=== PATIENT | male | born 1970 | race Caucasian/White ===

== ENCOUNTER 2017-01-03 18:34 | Inpatient (IN) | payer BC ==
[2017-01-03] MEDS ORDERED: NITROGLYCERIN SL TABS 0.4 MG TAB SUBLINGUAL PRN ×2 (18:53→20:30)
[2017-01-03] MEDS ORDERED: ASPIRIN 81 MG PO STA (18:53)
[2017-01-03 18:59] LABS: Basophils # (A) 0.1 k/uL (0-0.2); Basophils % (A) 0 %; CH 31.5; CHCM 33.2; Eosinophils # (A) 0.3 k/uL (0-0.7); Eosinophils % (A) 1 %; HCT 49.1 % (39.0-53.0); HDW 2.21; HGB 15.5 gm/dL (13.0-17.5); Luc % (Auto) 0; Lymphocytes # (A) 2.3 k/uL (1.0-4.8); Lymphocytes % (A) 10 %; MCH 30.1 pg (25.0-35.0); MCHC 31.6 g/dL (31.0-37.0); MCV 95.3 fL (80.0-100.0); Mean Platelet Volume 7.8; Monocytes % (A) 4 %; Neutrophils # (A) 19.1 k/uL (1.3-7.7); Neutrophils % (A) 84 %; RBC 5.16 m/uL (4.30-5.90); RDW 13.9 % (11.5-15.5); WBC 22.8 k/uL (3.8-10.6); WBC (Perox) 23.29
[2017-01-03] MEDS ORDERED: ATORVASTATIN 80 MG TAB PO STA (18:59)
[2017-01-03] MEDS ORDERED: HEPARIN SODIUM,PORCINE 5,000 UNIT/ML 1 ML VIAL IV ONE (19:04)
[2017-01-03 19:07] LABS: ALT 73 U/L (21-72); AST 45 U/L (17-59); Alkaline Phosphatase 85 U/L (38-126); Anion Gap 18 mmol/L; Blood Urea Nitrogen 19 mg/dL (9-20); Calcium 10.3 mg/dL (8.4-10.2); Carbon Dioxide 19 mmol/L (22-30); Chloride 99 mmol/L (98-107); Glucose 294 mg/dL (74-99); Non-African American GFR(MDRD) >60 (>60 ml/min/1.73 sqM); Potassium 4.2 mmol/L (3.5-5.1); Sodium 136 mmol/L (137-145); Total Bilirubin 0.7 mg/dL (0.2-1.3); Total Protein 8.2 g/dL (6.3-8.2)
--- NOTE | 2017-01-03 19:09 | ED ---
Chest Pain HPI - General Chief Complaint: Chest Pain Stated Complaint: Chest Pain Time Seen by Provider: 01/03/17 18:47 Source: patient Mode of arrival: ambulatory Limitations: no limitations - History of Present Illness Initial Comments: This patient is a 46-year-old man, with history of hypertension, who states that he was in his usual state of health until around 5:30 when he developed substernal chest discomfort that he describes as being heavy, constant, and without worsening or relieving factors. It is moderate intensity. He states that it also was accompanied by feeling nauseated, lightheaded, and a little short of breath. The patient's mother persuaded him to come emergency department. He denies history of previous coronary disease. He denies history of bleeding or clotting disorder. MD Complaint: chest pain Onset/Timin -: hour(s) Onset: during rest Pain Location: substernal Pain Radiation: none Severity: moderate Quality: heaviness Consistency: constant Improves With: nothing Worsens With: nothing Anginal Symptoms: nausea, dyspnea, other (Lightheaded) Other Symptoms: cough Treatments Prior to Arrival: none - Related Data Home Medications Medication Instructions Recorded Confirmed Cholecalciferol [Vitamin D3] 1,000 unit PO DAILY 01/03/17 01/03/17 Levothyroxine Sodium [Synthroid] 25 mcg PO DAILY 01/03/17 01/03/17 Lisinopril 40 mg PO DAILY 01/03/17 01/03/17 Oxymetazoline 0.05% Nasl [place] 2 spray EA NOSTRIL DAILY PRN 01/03/17 01/03/17 [Afrin 0.05% Nasal [place]] Triamterene/Hydrochlorothiazid 1 tab PO HS 01/03/17 01/03/17 [Triamterene-Hctz 37.5-25 mg Tb] metFORMIN HCL [Glucophage] 1,000 mg PO BID 01/03/17 01/03/17 Allergies Allergy/AdvReac Type Severity Reaction Status Date / Time No Known Allergies Allergy Verified 01/03/17 21:42 Review of Systems ROS Statement: Those systems with pertinent positive or pertinent negative responses have been documented in the HPI. ROS Other: All systems not noted in ROS Statement are negative. Constitutional: Denies: fever, chills Respiratory: Reports: dyspnea. Denies: cough, wheezes Cardiovascular: Reports: chest pain. Denies: palpitations, orthopnea, syncope Gastrointestinal: Reports: nausea. Denies: abdominal pain, vomiting, melena, hematochezia Genitourinary: Denies: dysuria Musculoskeletal: Denies: back pain Skin: Denies: rash Neurological: Denies: headache, weakness, numbness Hematological/Lymphatic: Denies: easy bleeding EKG Findings - EKG Results: EKG: interpreted by ERMD, sinus rhythm (With 1 fusion complex, rate approximate 78 bpm), normal axis - [place], Pacemaker, Normal: Myocardial infarction: septal [place] (acute or recent) (There are ST elevations leads V2 through V5) Past Medical History Past Medical History: Diabetes Mellitus, Hypertension History of Any Multi-Drug Resistant Organisms: None Reported Past Surgical History: Cholecystectomy, Orthopedic Surgery Past Psychological History: No Psychological Hx Reported Smoking Status: Current some day smoker Past Alcohol Use History: Rare Past Drug Use History: None Reported General Exam Limitations: no limitations General appearance: alert, in no apparent distress Head exam: Present: atraumatic, normocephalic Eye exam: Present: normal appearance. Absent: scleral icterus, conjunctival injection ENT exam: Present: normal oropharynx Neck exam: Present: normal inspection Respiratory exam: Present: normal lung sounds bilaterally. Absent: respiratory distress, wheezes, rales, rhonchi, stridor, chest wall tenderness Cardiovascular Exam: Present: regular rate, normal rhythm, normal heart sounds. Absent: systolic murmur, diastolic murmur, rubs, gallop GI/Abdominal exam: Present: soft. Absent: distended, tenderness, guarding, rebound, mass Extremities exam: Present: normal inspection, normal capillary refill. Absent: pedal edema, calf tenderness Back exam: Present: normal inspection. Absent: CVA tenderness (R), CVA tenderness (L) Neurological exam: Present: alert Skin exam: Present: warm, dry, intact, normal color. Absent: rash Course Vital Signs 01/03/17 01/03/17 01/03/17 18:39 18:45 18:50 Temperature 97.6 F Pulse Rate 81 100 100 Respiratory 18 18 18 Rate Blood Pressure 143/91 148/90 148/90 O2 Sat by Pulse 100 100 100 Oximetry 01/03/17 01/03/17 01/03/17 18:55 19:00 19:05 Temperature Pulse Rate 100 88 76 Respiratory 18 18 18 Rate Blood Pressure 137/83 121/87 124/73 O2 Sat by Pulse 99 99 100 Oximetry 01/03/17 01/03/17 19:10 19:15 Temperature Pulse Rate 66 73 Respiratory 18 18 Rate Blood Pressure 122/68 121/71 O2 Sat by Pulse 100 99 Oximetry - Reevaluation(s) Reevaluation #1: 01/03/17 19:10 Case discussed with hospitalist group for admission. Chest Pain MDM - MDM This patient is a 46-year-old man with history of hypertension who presents with symptoms concerning for acute coronary syndrome, and the ECG does show ST elevations in anteroseptal leads. labor conciliator was activated and I discussed the case with Dr. Tyson, who requested that Dr. Chapman be paged, and I discussed the case with him as well. The patient will go to the Traffic Work[facility] Representative. Critical Care Time Critical Care Time: Yes (35 minutes) Disposition Clinical Impression: ST elevation myocardial infarction (STEMI) Disposition: ADMITTED IP TO THIS HOSP Condition: Critical
[2017-01-03] MEDS ORDERED: HEPARIN SODIUM,PORCINE/D5W PMX 25,000 UNIT in DEXTROSE/WATER 1 500ML.BAG IV SCH (19:15)
[2017-01-03] MEDS ORDERED: LIDOCAINE 2% INJ 20 MG/ML (20 ML MDV) ONE ×2 (19:21→20:16)
[2017-01-03] MEDS ORDERED: IV FLUID CONTINUATION 900 ML IV ONE (19:23)
[2017-01-03] MEDS ORDERED: LIDOCAINE 2% INJ 20 MG/ML SQ ONE (19:35)
[2017-01-03] MEDS ORDERED: MIDAZOLAM 2 MG/2 ML VIAL IV ONE (19:35)
[2017-01-03] MEDS ORDERED: diphenhydrAMINE 50 MG/ML 1 ML VIAL ONE (19:36)
[2017-01-03] MEDS ORDERED: MIDAZOLAM 2 MG/2 ML VIAL ONE (19:36)
[2017-01-03] MEDS ORDERED: diphenhydrAMINE 50 MG/ML 1 ML VIAL IVP ONE (19:37)
[2017-01-03 19:45] LABS: Troponin I 0.028 ng/mL (0.000-0.034)
[2017-01-03] MEDS ORDERED: BIVALIRUDIN 250 MG in SODIUM CHLORIDE 0.9% 50 ML IV ONE (19:46)
[2017-01-03] MEDS ORDERED: BIVALIRUDIN BOLUS 250 MG/50 ML IV ONE (19:46)
[2017-01-03 19:56] LABS: Creatine Kinase MB 4.4 ng/mL (0.0-2.4)
[2017-01-03] MEDS ORDERED: LIDOCAINE HCL/PF 20 MG/ML 10 ML AMP IV ONE (19:57)
[2017-01-03 19:59] LABS: Partial Thromboplastin Time 22.5 sec (22.0-30.0); Prothrombin Time 10.6 sec (9.0-12.0)
[2017-01-03] MEDS ORDERED: HYDROmorphone 2 MG/ML 1 ML SYRINGE ONE (20:00)
[2017-01-03] MEDS: HYDROmorphone 2 MG/ML 1 ML SYRINGE IV ONE ×2 (20:01→20:17)
[2017-01-03] MEDS ORDERED: NITROGLYCERIN 1000MCG/10ML SYRINGE INTRAARTER ONE (20:08)
[2017-01-03] MEDS ORDERED: HYDROmorphone 2 MG/ML 1 ML SYRINGE IV ONE (20:08)
[2017-01-03] MEDS ORDERED: PRASUGREL 10 MG TAB ONE (20:12)
[2017-01-03] MEDS ORDERED: PRASUGREL 10 MG TAB PO ONE (20:13)
[2017-01-03] MEDS ORDERED: IOHEXOL 350 MG/ML 125ML BOTTLE INJ ONE (20:20)
--- NOTE | 2017-01-03 20:20 | XR ---
EXAMINATION TYPE: XR chest 1V portable DATE OF EXAM: 01/03/2017 COMPARISON: NONE INDICATION: Chest pain TECHNIQUE: Single frontal view of the chest is obtained. FINDINGS: The heart size is normal. The pulmonary vasculature is normal. The lungs are clear. IMPRESSION: 1. No acute pulmonary process.
--- NOTE | 2017-01-03 20:29 | CONS ---
CONSULTATION CHIEF COMPLAINT: Chest pain. HISTORY OF PRESENT ILLNESS: This is a 46-year-old gentleman with history of hypertension and [id number]-[id number] diabetes who presented to hospital with sudden onset chest pain. He describes it as a precordial chest pressure that started around 5 o'clock, severe intensity, came on at rest associated with diaphoresis and the pain has radiated to his back. The initial EKG showed acute ST-segment elevation from V1 to V6 suggestive of acute anterior wall myocardial infarction. I evaluated the patient in the emergency room and advised him to undergo emergent cardiac catheterization. He had been explained the risks, benefits and alternatives, understood and accepted. PAST MEDICAL HISTORY: Significant for diabetes and hypertension. MEDICATIONS: Include lisinopril and metformin. ALLERGIES: Denies any. FAMILY HISTORY: Significant for premature coronary artery disease in his father. SOCIAL HISTORY: Negative for smoking, ETOH abuse or drug abuse. REVIEW OF SYSTEMS: HEENT is unremarkable. Cardiac as described above. Respiratory negative. GI negative. negative. Skin and muscle: Unremarkable. Endocrine: Unremarkable. Constitutional and oncological negative. Rest of the system review is not relevant. EXAM: Comfortable at rest. Vital signs are stable. There is no jugular venous distention. Carotid upstroke is normal. There is no bruit. Chest exam reveals good air entry bilaterally. Heart exam reveals first and second heart sounds. No gallop. No murmur. No rub. ABDOMEN: Soft, nontender. Exam of the extremities did not reveal edema. Peripheral pulses are felt. PROCESSING SPEC exam did not reveal focal neurological deficits. EKG shows acute ST-segment elevation in the precordial leads. Labs are pending. ASSESSMENT: Acute anterior wall myocardial infarction. PLAN: The patient will undergo emergent cardiac catheterization with a view to performing angioplasty. Evidently based therapies have been initiated in the ER. MMODL / IJN: [id number] /
[2017-01-03] MEDS ORDERED: ATROPINE SULFATE 0.1 MG/ML 10ML SYRINGE IV PRN (20:30)
[2017-01-03] MEDS ORDERED: RX INFO: IV CONTRAST WAS GIVEN 1 EACH MISC MISCELLANE PRN (20:30)
[2017-01-03] MEDS ORDERED: ZOLPIDEM 5 MG TAB PO PRN (20:30)
[2017-01-03] MEDS ORDERED: MAG HYDROX/AL HYDROX/SIMETH 30 ML CUP PO PRN (20:30)
--- NOTE | 2017-01-03 20:44 | CC ---
CARDIAC CATHETERIZATION REPORT INDICATION: Acute anterior wall myocardial infarction. PROCEDURE NOTE: After obtaining informed consent, left heart catheterization and coronary angiogram were performed via the right femoral artery using standard Andre catheters. The patient tolerated the procedure well without any obvious immediate complications. FINDINGS: HEMODYNAMICS: 1. Central aortic pressure is 110/70 mm. LEFT VENTRICULOGRAM.: Left ventriculogram was not performed. ANGIOGRAPHIC DATA: 1. Left main coronary artery: Left main coronary artery is a normal-sized vessel and is free of stenosis. Divides into left anterior descending coronary artery and circumflex coronary artery. 2. LAD is totally occluded in its proximal part. 3. Circumflex coronary artery shows mild nonobstructive CAD. 4. Right coronary artery is a large dominant vessel shows mild non atherosclerotic plaque. CONCLUSIONS: Acute occlusion of the proximal LAD. PLAN: There is a vessel that is responsible for the acute myocardial infarction. The patient will undergo emergent angioplasty by Dr. Pedro Chapman, the on-call associate store manager. MMISREALL / ESSIEN: [id number] /
[2017-01-03] MEDS ORDERED: MAGNESIUM SULFATE-D5W PMX 1 GM in DEXTROSE/WATER 1 100ML.BAG IVPB ONE (21:00)
[2017-01-03 21:03] LABS: Glucose,Whole Blood 234 mg/dL (75-99)
[2017-01-03] MEDS: METOPROLOL TARTRATE 12.5 MG TAB PO SCH (21:44)
--- NOTE | 2017-01-03 22:20 | CC ---
PCI OF LAD REPORT. DATE OF SERVICE: 01/03/2017 PROCEDURE: PTCA and stenting of totally occluded proximal LAD performed in the setting of an acute ST-elevation [place]. Reperfusion achieved in 82 min. PERFORMED BY: Dr. Pedro Chapman. SEDATION: Moderate conscious sedation time 44 minutes. CLINICAL INFORMATION: Mr. Dmitriy Gipson presented with acute anterior lateral myocardial infarction to the emergency room, was seen by Dr. Tyson who underwent prompt cardiac catheterization that revealed total occlusion of proximal LAD. He had noncritical disease in other vessels. He underwent PCI in the same setting. PROCEDURE NOTE: The existing 6-[place] introducer in the right femoral artery was used to perform procedure. I used a standard left Andre guide catheter to cannulate the left coronary artery. I used a run-through wire, but the wire kept going into the diagonal branch. I then advanced a whisper wire with a J-tip and using a little manipulation of the guide, I was able to advance the wire into the total occlusion of the LAD. Wire was kept distally. Predilatation was performed using a 3.0 caliber 12 mm long Trek balloon. Subsequently, a 12 mm long 3.25 caliber Xience stent was deployed at 12 atmospheres. Patient had chest pain and anterior ST elevation. Excellent angiographic result was achieved. He developed some ventricular ectopy requiring lidocaine. Excellent angiographic result without complication was achieved. A Perclose device was used to secure hemostasis and patient was sent to the room in stable condition. He received 60 mg of Effient. He also received Angiomax bolus and infusion as per protocol. The drug-eluting stent was deployed with excellent angiographic result without complication. Results were discussed with the patient and his mother. He was sent to the ICU in a stable condition. MMODL / IJN: [id number] / MTDD
[2017-01-03] MEDS: INSULIN ASPART 100 UNIT/ML 1 ML 10 ML VIAL SQ SCH (22:36)
[2017-01-03] MEDS: SODIUM CHLORIDE 0.9% 1,000 ML IV SCH (22:39)
[2017-01-04 06:13] LABS: Basophils % (A) 0 %; CHCM 34.2; Eosinophils # (A) 0.2 k/uL (0-0.7); Eosinophils % (A) 1 %; HCT 43.5 % (39.0-53.0); HDW 2.25; HGB 14.4 gm/dL (13.0-17.5); Luc # (Auto) 0.13; Luc % (Auto) 1; Lymphocytes # (A) 2.8 k/uL (1.0-4.8); Lymphocytes % (A) 23 %; MCH 31.1 pg (25.0-35.0); MCHC 33.2 g/dL (31.0-37.0); MCV 93.9 fL (80.0-100.0); Mean Platelet Volume 6.6; Monocytes # (A) 0.7 k/uL (0-1.0); Monocytes % (A) 6 %; Neutrophils # (A) 8.4 k/uL (1.3-7.7); Neutrophils % (A) 69 %; RBC 4.63 m/uL (4.30-5.90); RDW 12.4 % (11.5-15.5); WBC 12.1 k/uL (3.8-10.6)
[2017-01-04 06:46] LABS: Anion Gap 8 mmol/L; Blood Urea Nitrogen 17 mg/dL (9-20); Calcium 9.4 mg/dL (8.4-10.2); Carbon Dioxide 22 mmol/L (22-30); Chloride 102 mmol/L (98-107); Glucose 191 mg/dL (74-99); Non-African American GFR(MDRD) >60 (>60 ml/min/1.73 sqM); Potassium 3.9 mmol/L (3.5-5.1); Sodium 132 mmol/L (137-145)
[2017-01-04] MEDS ORDERED: Potassium Replacement Protocol 1 EACH MISC MISCELLANE PRN (07:15)
[2017-01-04] MEDS ORDERED: INSULIN ASPART 100 UNIT/ML 1 ML 10 ML VIAL SQ SCH (07:30)
[2017-01-04 07:33] LABS: Glucose,Whole Blood 185 mg/dL (75-99)
[2017-01-04] MEDS ORDERED: POTASSIUM CHLORIDE ER 20 MEQ TAB.ER PO SCH (08:00)
[2017-01-04] MEDS: INSULIN ASPART 100 UNIT/ML 1 ML 10 ML VIAL SQ SCH ×4 (08:30→20:20)
[2017-01-04] MEDS: ASPIRIN 81 MG PO SCH (08:31)
[2017-01-04] MEDS: LISINOPRIL 10 MG TAB PO SCH (08:31)
[2017-01-04] MEDS: METOPROLOL TARTRATE 12.5 MG TAB PO SCH ×2 (08:32→20:19)
[2017-01-04 09:43] VITALS: BMI 34.2
--- NOTE | 2017-01-04 11:01 | ECHOF ---
Referral Reason:evaluate LV function, anterior STEMI MEASUREMENTS -------- HEIGHT: 182.9 cm WEIGHT: 121.1 kg BP: IVSd: 1.6 cm (0.6 - 1.1) LVIDd: 4.0 cm (3.9 - 5.3) LVPWd: 1.6 cm (0.6 - 1.1) IVSs: 2.0 cm LVIDs: 2.7 cm LVPWs: 2.2 cm Ao Diam: 3.4 cm (2.0 - 3.7) AV Cusp: 2.2 cm (1.5 - 2.6) LA Diam: 3.4 cm (2.7 - 3.8) MV EXCURSION: 21.171 mm (> 18.000) MV EF SLOPE: 166 mm/s (70 - 150) EPSS: 0.3 cm MV E Dwayne: 0.90 m/s MV DecT: 219 ms MV A Dwayne: 0.66 m/s MV E/A Ratio: 1.35 RAP: 5.00 mmHg RVSP: 20.43 mmHg FINDINGS -------- Sinus rhythm. This was a technically difficult study with suboptimal views. The left ventricular size is normal. There is moderate concentric left ventricular hypertrophy. O verall left ventricular systolic function is moderately impaired with, an EF between 35 - 40 %. Sep ester Hypokinesis [place] Hypokinesis. The right ventricle is normal in size and function. The left atrium is normal in size. The right atrium is normal in size. 1.5mg of Definity was utilized for enhancement of images The aortic valve is trileaflet, and appears structurally normal. No aortic stenosis or regurgitation. There is trace mitral regurgitation. Trace tricuspid regurgitation present. The right ventricular systolic pressure, as measured by Dopp ler, is 20.43mmHg. Pulmonic valve appears structurally normal. The aortic root size is normal. The pericardium is normal. CONCLUSIONS -------- 1. Sinus rhythm. 2. This was a technically difficult study with suboptimal views. 3. The left ventricular size is normal. 4. There is moderate concentric left ventricular hypertrophy. 5. Overall left ventricular systolic function is moderately impaired with, an EF between 35 - 40 %. 6. Septal Hypokinesis 7. [place] Hypokinesis. 8. The right ventricle is normal in size and function. 9. The left atrium is normal in size. 10. The right atrium is normal in size. 11. 1.5mg of Definity was utilized for enhancement of images 12. The aortic valve is trileaflet, and appears structurally normal. No aortic stenosis or regurgitat ion. 13. There is trace mitral regurgitation. 14. Trace tricuspid regurgitation present. 15. The right ventricular systolic pressure, as measured by Doppler, is 20.43mmHg. 16. Pulmonic valve appears structurally normal. 17. The aortic root size is normal. 18. The pericardium is normal. MAINS[employer]ING TORQUE TESTER: Veronica Santos RDCS
[2017-01-04 12:08] LABS: Glucose,Whole Blood 213 mg/dL (75-99)
--- NOTE | 2017-01-04 12:27 | PN ---
PROGRESS NOTE Mr. Gipson presented with acute anterior PA yesterday and underwent stenting of totally occluded LAD and a reperfusion was accomplished in 82 minutes. He is doing well this morning. Denies chest pain, stable shortness of breath. The right groin is clean and dry. Blood pressure 130/80, pulse rate is 70 per minute. S1, S2 are heard normal. Lungs are clear. Abdomen and lower extremity exam unchanged. Right groin is clean and dry. Plan is to get echocardiogram, increase activity and hopefully move him into telemetry tomorrow. MMODL / IJN: [id number] /
[2017-01-04] MEDS: SODIUM CHLORIDE 0.9% 1,000 ML IV SCH (12:35)
[2017-01-04] MEDS: CLOPIDOGREL 75 MG TAB PO SCH (12:35)
[2017-01-04 17:23] LABS: Glucose,Whole Blood 143 mg/dL (75-99)
[2017-01-04] MEDS: ATORVASTATIN 80 MG TAB PO SCH (20:19)
[2017-01-04 20:20] LABS: Glucose,Whole Blood 201 mg/dL (75-99)
--- NOTE | 2017-01-04 22:32 | P.HPIM ---
History of Present Illness H&P Date: 01/04/17 Chief Complaint: Chest pain Patient is a 46 old male with a known history of hypertension, diabetes type 2 and hypothyroidism came to the hospital with complaints of chest pain radiating down the left arm. Patient did some yard work Today and a shunt did not eat from 10 AM to 5 PM yesterday. Patient felt dizzy and had shower. Patient became sweaty at the time. Patient went and ate something and came home when he felt chest pressure and heavy feeling in the chest constant. It is associated with shortness of breath and not feeling well. Denied any aggravating or relieving factors. Patient came to the hospital for evaluation. Patient was found to have ST elevated [place] and was immediately taken to cardiac catheterization and stent placement was done. Patient denied any history of previous coronary artery disease. Otherwise patient does have family history of coronary artery disease in his father and grandfather. Patient does smoke cigarettes. History of diabetes and hypertension. Currently patient denied any chest discomfort or shortness of breath at this time Review of Systems Constitutional: Patient denies any fever or chills . No generalized weakness or weight loss. Abdomen: Patient denied nausea vomiting and diarrhea and abdominal pain. Cardiovascular: Patient denies any chest pain or short of breath no palpitations. Respiratory: patient denied any cough is from production. No shortness of breath Neurologic: Patient denied any numbness or tingling headache. Musculoskeletal: Patient denies any complaints of joint swelling or deformity. Skin: Negative Psychiatric: Negative Endocrine: No heat or cold intolerance. No recent weight gain. Genitourinary: No dysuria or hematuria. All other 14 point ROS negative except the above Past Medical History Past Medical History: Diabetes Mellitus, Hypertension History of Any Multi-Drug Resistant Organisms: None Reported Past Surgical History: Cholecystectomy, Orthopedic Surgery Past Anesthesia/Blood Transfusion Reactions: No Reported Reaction Past Psychological History: No Psychological Hx Reported Smoking Status: Current some day smoker Past Alcohol Use History: Rare Past Drug Use History: None Reported Medications and Allergies Home Medications Medication Instructions Recorded Confirmed Type Cholecalciferol [Vitamin D3] 1,000 unit PO DAILY 01/03/17 01/03/17 History Levothyroxine Sodium [Synthroid] 25 mcg PO DAILY 01/03/17 01/03/17 History Lisinopril 40 mg PO DAILY 01/03/17 01/03/17 History Oxymetazoline 0.05% Nasl [place] 2 spray EA NOSTRIL DAILY PRN 01/03/17 01/03/17 History [Afrin 0.05% Nasal [place]] Triamterene/Hydrochlorothiazid 1 tab PO HS 01/03/17 01/03/17 History [Triamterene-Hctz 37.5-25 mg Tb] metFORMIN HCL [Glucophage] 1,000 mg PO BID 01/03/17 01/03/17 History Allergies Allergy/AdvReac Type Severity Reaction Status Date / Time No Known Allergies Allergy Verified 01/03/17 21:42 Physical Exam Vitals: Vital Signs Temp Pulse Pulse Resp BP BP Pulse Ox 01/04/17 07:00 62 19 127/77 97 01/04/17 06:30 65 20 127/77 96 01/04/17 06:00 69 21 114/69 95 01/04/17 05:30 70 21 114/69 96 01/04/17 05:00 64 20 118/71 98 01/04/17 04:30 77 28 H 118/71 98 01/04/17 04:00 99 F 63 13 113/69 99 01/04/17 03:30 65 17 113/69 97 01/04/17 03:00 78 21 102/61 97 01/04/17 02:30 68 17 102/61 96 01/04/17 02:00 63 18 111/61 98 01/04/17 01:30 65 17 111/61 98 01/04/17 01:00 71 19 117/62 97 01/04/17 00:30 72 24 117/62 96 01/04/17 00:00 98.8 F 75 21 132/72 97 01/03/17 23:48 22 01/03/17 23:30 74 24 132/72 96 01/03/17 23:23 75 20 132/72 96 01/03/17 23:00 76 22 135/72 96 01/03/17 22:30 98.8 F 84 25 H 135/72 98 01/03/17 22:00 70 17 123/78 98 01/03/17 21:30 99.5 F 96 22 123/78 98 01/03/17 21:03 99.5 F 76 18 97 01/03/17 21:01 80 12 96 01/03/17 19:33 99.5 F 63 19 123/78 98 01/03/17 19:15 73 18 121/71 99 01/03/17 19:10 66 18 122/68 100 01/03/17 19:05 76 18 124/73 100 01/03/17 19:00 88 18 121/87 99 01/03/17 18:55 100 18 137/83 99 01/03/17 18:50 100 18 148/90 100 01/03/17 18:45 100 18 148/90 100 01/03/17 18:39 97.6 F 81 18 143/91 100 Intake and Output 01/03/17 01/04/17 01/04/17 22:59 06:59 14:59 Intake Total 370.35 600 75 Output Total 0 1200 0 Balance 370.35 -600 75 Intake: IV 370.35 600 75 Sodium Chloride 0.9% 1, 75 600 75 000 ml @ 75 mls/hr IV . [id number] Rx#:[id number] Output: Urine 0 1200 0 Other: Weight 122.4 kg 121.2 kg 121.2 kg Patient Weight 01/05/17 06:59 Weight 121.2 kg PHYSICAL EXAMINATION: Patient is lying in the bed comfortably, no acute distress, awake alert and oriented.. HEENT: Normocephalic. Neck is supple. Pupils reactive. Nostrils clear. Oral cavity is moist. Ears reveal no drainage. Neck reveals no JVD, carotid bruits, or thyromegaly. CHEST EXAMINATION: Trachea is central. Symmetrical expansion. Lung leroy clear to auscultation and percussion. CARDIAC: Normal S1, S2 with no gallops. No murmurs ABDOMEN: Soft. Bowel sounds normal. No organomegaly. No abdominal bruits. Extremities: reveal no edema. No clubbing or cyanosis Neurologically awake, alert, oriented x3 with well-coordinated movements. No focal deficits noted Skin: No rash or skin lesions. Psychiatric: Operative. Nonsuicidal Musculoskeletal: No joint swelling or deformity. Normal range of motion. Results CBC & Chem 7: 01/04/17 06:02 01/04/17 06:02 Labs: Abnormal Lab Results - Last 24 Hours (Table) 01/03/17 01/03/17 01/03/17 Range/Units 18:50 18:50 18:50 WBC 22.8 H (3.8-10.6) k/uL Neutrophils # 19.1 H (1.3-7.7) k/uL Sodium 136 L (137-145) mmol/L Carbon Dioxide 19 L (22-30) mmol/L Glucose 294 H (74-99) mg/dL POC Glucose (mg/dL) (75-99) mg/dL Calcium 10.3 H (8.4-10.2) mg/dL ALT 73 H (21-72) U/L CK-MB (CK-2) 4.4 H* (0.0-2.4) ng/mL Troponin I (0.000-0.034) ng/mL 01/03/17 01/04/17 01/04/17 Range/Units 21:01 01:42 06:02 WBC (3.8-10.6) k/uL Neutrophils # (1.3-7.7) k/uL Sodium 132 L (137-145) mmol/L Carbon Dioxide (22-30) mmol/L Glucose 191 H (74-99) mg/dL POC Glucose (mg/dL) 234 H (75-99) mg/dL Calcium (8.4-10.2) mg/dL ALT (21-72) U/L CK-MB (CK-2) (0.0-2.4) ng/mL Troponin I 155.000 H* (0.000-0.034) ng/mL 01/04/17 01/04/17 01/04/17 Range/Units 06:02 06:02 07:30 WBC 12.1 H (3.8-10.6) k/uL Neutrophils # 8.4 H (1.3-7.7) k/uL Sodium (137-145) mmol/L Carbon Dioxide (22-30) mmol/L Glucose (74-99) mg/dL POC Glucose (mg/dL) 185 H (75-99) mg/dL Calcium (8.4-10.2) mg/dL ALT (21-72) U/L CK-MB (CK-2) (0.0-2.4) ng/mL Troponin I 137.000 H* (0.000-0.034) ng/mL 01/04/17 Range/Units 12:06 WBC (3.8-10.6) k/uL Neutrophils # (1.3-7.7) k/uL Sodium (137-145) mmol/L Carbon Dioxide (22-30) mmol/L Glucose (74-99) mg/dL POC Glucose (mg/dL) 213 H (75-99) mg/dL Calcium (8.4-10.2) mg/dL ALT (21-72) U/L CK-MB (CK-2) (0.0-2.4) ng/mL Troponin I (0.000-0.034) ng/mL Thrombosis Risk Factor Assmnt - Choose All That Apply Any of the Below Risk Factors Present?: Yes Each Factor Represents 1 point: Acute [place], Age 41-60 years, Obesity (BMI >25) Other Risk Factors: No Other congenital or acquired thrombophilia - If yes, enter type in comment: No Thrombosis Risk Factor Assessment Total Risk Factor Score: 3 Thrombosis Risk Factor Assessment Level: Moderate Risk Assessment and Plan Assessment: #[address] elevated [place] status post emergent Catheterization and stent placement #2 hypertension #3 diabetes type 2 [id number] #4 hypothyroidism next #5 cigarettes smoking #6 family history of coronary disease Plan: Patient will be continued on telemetry monitoring. Continue with aspirin Plavix lisinopril and metoprolol. Continue to monitor closely and further recommendations based on clinical course. Continue with insulin sliding scale and home medications. Cardiology is following.
[2017-01-05 04:58] LABS: Basophils % (A) 0 %; CH 30.9; CHCM 32.8; Eosinophils # (A) 0.1 k/uL (0-0.7); Eosinophils % (A) 1 %; HCT 44.5 % (39.0-53.0); HGB 14.3 gm/dL (13.0-17.5); Luc # (Auto) 0.15; Luc % (Auto) 1; Lymphocytes # (A) 3.2 k/uL (1.0-4.8); Lymphocytes % (A) 31 %; MCH 30.5 pg (25.0-35.0); MCHC 32.2 g/dL (31.0-37.0); MCV 94.6 fL (80.0-100.0); Mean Platelet Volume 7.5; Monocytes # (A) 0.8 k/uL (0-1.0); Monocytes % (A) 8 %; Neutrophils % (A) 59 %; RDW 13.6 % (11.5-15.5); WBC 10.2 k/uL (3.8-10.6)
[2017-01-05 05:15] LABS: Anion Gap 6 mmol/L; Blood Urea Nitrogen 12 mg/dL (9-20); Calcium 9.4 mg/dL (8.4-10.2); Carbon Dioxide 26 mmol/L (22-30); Chloride 105 mmol/L (98-107); Glucose 174 mg/dL (74-99); Non-African American GFR(MDRD) >60 (>60 ml/min/1.73 sqM); Potassium 4.5 mmol/L (3.5-5.1); Sodium 137 mmol/L (137-145)
[2017-01-05 07:09] LABS: Glucose,Whole Blood 180 mg/dL (75-99)
[2017-01-05] MEDS: CLOPIDOGREL 75 MG TAB PO SCH (08:43)
[2017-01-05] MEDS: INSULIN ASPART 100 UNIT/ML 1 ML 10 ML VIAL SQ SCH ×4 (08:43→21:27)
[2017-01-05] MEDS: ASPIRIN 81 MG PO SCH (08:43)
[2017-01-05] MEDS: METOPROLOL TARTRATE 12.5 MG TAB PO SCH ×2 (08:44→21:26)
[2017-01-05 11:55] LABS: Glucose,Whole Blood 147 mg/dL (75-99)
[2017-01-05] MEDS: metFORMIN 500 MG TAB PO SCH ×2 (12:16→17:18)
[2017-01-05] MEDS: LISINOPRIL 10 MG TAB PO SCH (12:16)
--- NOTE | 2017-01-05 13:37 | PN ---
PROGRESS NOTE This gentleman who suffered from an anterior MS is doing well. His right groin is clean and dry. Vital signs are stable. Ejection fraction about 35% to 40%, but I suspect some of it is stunning and his LV function will improve eventually. His vital signs are stable. S1, S2 heard normally. Lungs are clear. Abdomen and lower extremity exam unchanged. Plan is to continue current medication. Increase activity and move him to telemetry today. Same medical regimen. MMODL / IJN: [id number] /
--- NOTE | 2017-01-05 17:03 | P.PN ---
Subjective Patient was admitted for rest elevation microinfarction underwent cardiac catheterization and stenting of left anterior descending. Patient's EF on echo cardiac exam is 35-40% Constitutional: Denied any fatigue denied any fever. Cardio vascular: denied any chest pain, palpitations Gastrointestinal denied any nausea vomiting Pulmonary: Denied any shortness of breath cough Neurologic denied any new focal deficits Objective - Vital Signs Vital signs: Vital Signs Temp 98.3 F 01/05/17 16:21 Pulse 59 L 01/05/17 14:00 Resp 12 01/05/17 14:00 BP 103/66 01/05/17 16:21 Pulse Ox 98 01/05/17 08:31 Intake & Output 01/04/17 01/05/17 01/05/17 18:59 06:59 18:59 Intake Total 375 1175 0 Output Total 0 Balance 375 1175 0 Weight 121.2 kg 120.6 kg 120.6 kg Intake: IV 375 375 Sodium Chloride 0.9% 1, 375 375 000 ml @ 75 mls/hr IV . [id number] POOL Rx#:[id number] Intake, IV Titration 0 0 Amount Sodium Chloride 0.9% 1, 0 0 000 ml @ 75 mls/hr IV . [id number] POOL Rx#:[id number] Oral 800 Output: Urine 0 Other: Voiding Method Toilet # Voids 1 0 2 - Exam PHYSICAL EXAMINATION: GENERAL: The patient is alert and oriented x3, not in any acute distress. Well developed, well nourished. HEENT: Pupils are round and equally reacting to light. EOMI. No scleral icterus. No conjunctival pallor. Normocephalic, atraumatic. No pharyngeal erythema. No thyromegaly. CARDIOVASCULAR: S1 and S2 present. No murmurs, rubs, or gallops. PULMONARY: Chest is clear to auscultation, no wheezing or crackles. ABDOMEN: Soft, nontender, nondistended, normoactive bowel sounds. No palpable organomegaly. MUSCULOSKELETAL: No joint swelling or deformity. EXTREMITIES: No cyanosis, clubbing, or pedal edema. NEUROLOGICAL: Gross neurological examination did not reveal any focal deficits. SKIN: No rashes. - Labs CBC & Chem 7: 01/05/17 04:24 01/05/17 04:24 Labs: Abnormal Lab Results - Last 24 Hours (Table) 01/04/17 01/04/17 01/05/17 Range/Units 17:21 20:19 04:24 Glucose 174 H (74-99) mg/dL POC Glucose (mg/dL) 143 H 201 H (75-99) mg/dL 01/05/17 01/05/17 Range/Units 07:08 11:54 Glucose (74-99) mg/dL POC Glucose (mg/dL) 180 H 147 H (75-99) mg/dL Assessment and Plan Plan: #[address] elevated [place] status post emergent Catheterization and stent placement #2 hypertension #3 diabetes type 2 [id number] #4 hypothyroidism #5 cigarettes smoking #6 congestive heart failure probable probably acute systolic dysfunction not in acute exacerbation patient was started on lisinopril and heart failure is probably related to 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
[2017-01-05 17:17] LABS: Glucose,Whole Blood 137 mg/dL (75-99)
[2017-01-05] MEDS ORDERED: SODIUM CHLORIDE 0.65% NASAL SPRAY 44 ML BTL NASAL PRN (17:29)
[2017-01-05 21:17] LABS: Glucose,Whole Blood 149 mg/dL (75-99)
[2017-01-05] MEDS: ATORVASTATIN 80 MG TAB PO SCH (21:26)
[2017-01-06 06:12] LABS: Glucose,Whole Blood 159 mg/dL (75-99)
[2017-01-06 06:22] LABS: Anion Gap 7 mmol/L; Blood Urea Nitrogen 14 mg/dL (9-20); Calcium 9.4 mg/dL (8.4-10.2); Carbon Dioxide 25 mmol/L (22-30); Chloride 104 mmol/L (98-107); Glucose 172 mg/dL (74-99); Non-African American GFR(MDRD) >60 (>60 ml/min/1.73 sqM); Potassium 4.2 mmol/L (3.5-5.1); Sodium 136 mmol/L (137-145)
[2017-01-06] MEDS: metFORMIN 500 MG TAB PO SCH (06:38)
[2017-01-06] MEDS: INSULIN ASPART 100 UNIT/ML 1 ML 10 ML VIAL SQ SCH ×2 (06:38→13:02)
[2017-01-06] MEDS: METOPROLOL TARTRATE 12.5 MG TAB PO SCH (08:39)
[2017-01-06] MEDS: LISINOPRIL 10 MG TAB PO SCH (08:39)
[2017-01-06] MEDS: CLOPIDOGREL 75 MG TAB PO SCH (08:39)
[2017-01-06] MEDS: ASPIRIN 81 MG PO SCH (08:39)
[2017-01-06 11:44] VITALS: BP 115/75; PULSE 67; RESP 14; TEMP 97
[2017-01-06 11:53] LABS: Glucose,Whole Blood 156 mg/dL (75-99)
--- NOTE | 2017-01-06 14:02 | P.DS ---
Providers Date of admission: 01/03/17 18:59 Attending physician: Kishan Perez Consults: 01/03/17 18:53 Consult Physician Stat Consulting Provider: [facility] Consult Reason/Comments: STEMI ACTIVATION COMPLETE Do you want consulting provider notified?: Already Contacted 01/03/17 20:33 Consult Physician Routine Consulting Provider: Td Gonsalez Consult Reason/Comments: Post Interventional patient Do you want consulting provider notified?: Already Contacted Primary care physician: Physician Nonstaff Hospital Course: Patient was admitted for ST elevation myocardial infarction underwent cardiac catheterization and stenting of left anterior descending. Patient's EF on echo cardiac exam is 35-40%. Patient is not in CHF exacerbation patient is clinically doing well is being discharged today . Patient will be continued on lisinopril PHYSICAL EXAMINATION: GENERAL: The patient is alert and oriented x3, not in any acute distress. Well developed, well nourished. HEENT: Pupils are round and equally reacting to light. EOMI. No scleral icterus. No conjunctival pallor. Normocephalic, atraumatic. No pharyngeal erythema. No thyromegaly. CARDIOVASCULAR: S1 and S2 present. No murmurs, rubs, or gallops. PULMONARY: Chest is clear to auscultation, no wheezing or crackles. ABDOMEN: Soft, nontender, nondistended, normoactive bowel sounds. No palpable organomegaly. MUSCULOSKELETAL: No joint swelling or deformity. EXTREMITIES: No cyanosis, clubbing, or pedal edema. NEUROLOGICAL: Gross neurological examination did not reveal any focal deficits. SKIN: No rashes. 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 Patient Condition at Discharge: Critical Plan - Discharge Summary Discharge Rx Participant: Yes New Discharge Prescriptions: New Aspirin 81 mg PO DAILY #30 chew Atorvastatin [Lipitor] 80 mg PO HS #30 tab Clopidogrel [Plavix] 75 mg PO DAILY #30 tab Lisinopril [Zestril] 10 mg PO DAILY #30 tab Metoprolol Tartrate [Lopressor] 12.5 mg PO BID #60 tab Nitroglycerin Sl Tabs [Nitrostat] 0.4 mg SUBLINGUAL Q5M PRN #25 tab PRN Reason: Chest Pain Discontinued Triamterene/Hydrochlorothiazid [Triamterene-Hctz 37.5-25 mg Tb] 1 tab PO HS Lisinopril 40 mg PO DAILY No Action Oxymetazoline 0.05% Nasl [place] [Afrin 0.05% Nasal [place]] 2 spray EA NOSTRIL DAILY PRN PRN Reason: Nasal Congestion Cholecalciferol [Vitamin D3] 1,000 unit PO DAILY metFORMIN HCL [Glucophage] 1,000 mg PO BID Levothyroxine Sodium [Synthroid] 25 mcg PO DAILY Discharge Medication List Cholecalciferol [Vitamin D3] 1,000 unit PO DAILY 01/03/17 [History] Levothyroxine Sodium [Synthroid] 25 mcg PO DAILY 01/03/17 [History] Oxymetazoline 0.05% Nasl [place] [Afrin 0.05% Nasal [place]] 2 spray EA NOSTRIL DAILY PRN 01/03/17 [History] metFORMIN HCL [Glucophage] 1,000 mg PO BID 01/03/17 [History] Aspirin 81 mg PO DAILY #30 chew 01/06/17 [Rx] Atorvastatin [Lipitor] 80 mg PO HS #30 tab 01/06/17 [Rx] Clopidogrel [Plavix] 75 mg PO DAILY #30 tab 01/06/17 [Rx] Lisinopril [Zestril] 10 mg PO DAILY #30 tab 01/06/17 [Rx] Metoprolol Tartrate [Lopressor] 12.5 mg PO BID #60 tab 01/06/17 [Rx] Nitroglycerin Sl Tabs [Nitrostat] 0.4 mg SUBLINGUAL Q5M PRN #25 tab 01/06/17 [Rx ] Follow up Appointment(s)/Referral(s): Landry Chapman MD [STAFF PHYSICIAN] - 01/13/17 8:00 am PriteshPhysician [Primary Care Provider] - 01/11/17 2:00 pm (Shana Oneill MD ) Patient Instructions/Handouts: *Surgery [facility] - After Heart Catheterization - [employer]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
--- NOTE | 2017-01-06 15:33 | CONS ---
CONSULTATION Mr. Gipson presented with acute anterior ID, underwent stenting of LAD. He was seen by Dr. Tyson on his arrival to the emergency room. He is doing well today, asymptomatic. No chest pain. Ejection fraction in the 40% range. Vital signs are stable. No JVD. S1-S2 heard normally. Heart sounds are distant. The lungs are clear. Abdomen and lower exam unchanged. Right groin is clean and dry. Dr. Tyson is not in town next week and therefore I will see him in the office and then turn him over to his care. This was explained to the patient and he will follow through. Again, I reviewed with him all the medications, specifically dual antiplatelet therapy and also reviewed with him the activity and that he should not drive for 1 week. I will see him in the office next week. MMODL / IJN: [id number] /
== END 2017-01-06 13:50 | disposition home or self-care (01) | DRG 247 ==
LOC: EC 18:34 → 6ICU 18:59 → 6SEL 01-05 17:44
PROVIDERS: ADMIT Hospitalist; ATTEND Hospitalist
PROC: B2111ZZ Fluoroscopy of Multiple Coronary Arteries using Low Osmolar Contrast (ICD-10-PCS; 2017-01-03)
PROC: B2151ZZ Fluoroscopy of Left Heart using Low Osmolar Contrast (ICD-10-PCS; 2017-01-03)
PROC: 4A023N7 Measurement of Cardiac Sampling and Pressure, Left Heart, Percutaneous Approach (ICD-10-PCS; principal; 2017-01-03 19:31)
PROC: 027034Z Dilation of Coronary Artery, One Artery with Drug-eluting Intraluminal Device, Percutaneous Approach (ICD-10-PCS; 2017-01-03 19:31)
DX: I21.09 ST elevation (STEMI) myocardial infarction involving other coronary artery of anterior wall (principal); I11.0 Hypertensive heart disease with heart failure; I50.22 Chronic systolic (congestive) heart failure; F17.210 Nicotine dependence, cigarettes, uncomplicated; I25.10 Atherosclerotic heart disease of native coronary artery without angina pectoris; E11.9 Type 2 diabetes mellitus without complications; I49.3 Ventricular premature depolarization; E03.9 Hypothyroidism, unspecified; Z82.49 Family history of ischemic heart disease and other diseases of the circulatory system; Z79.899 Other long term (current) drug therapy; Z79.4 Long term (current) use of insulin; I25.2 Old myocardial infarction; Z90.49 Acquired absence of other specified parts of digestive tract
CPT/HCPCS: 36415; 71010; 80048; 80053; 82553; 83036; 83735; 84484; 85025; 85610; 85730; 93005; 93306; 93454; 96365; 96376; 99291